=== PATIENT | female | born 1960 | race Caucasian/White ===

== ENCOUNTER 2018-08-09 13:40 | Emergency (ER) | payer BC ==
[~2018-08-09] VITALS: Ht 162.6 cm; Wt 86.2 kg
[2018-08-09 13:44] VITALS: BP 89/56
--- NOTE | 2018-08-09 13:51 | NUR ---
57/F [place] [facility] [place]. PT STATES SHE FELT DIZZINESS, FELL BACK AND HIT HER HEAD, + HEMATOMIA ON THE RIGHT SIDE OF THE HEAD. DENIES LOC OR N/V. BLL PITTING EDEMA . PMH: LIVER CIRRHOSIS,DM, HTN,ETOH ABUSE, ABD HERNIA & SURGERY:SCAR.PATIENT STATES PAIN OF 8/10 AT THIS TIME. PATIENT POSITIONED FOR COMFORT; HOB ELEVATED; BEDRAILS UP X2; BED DOWN. ER MD MADE AWARE OF PT STATUS.
--- NOTE | 2018-08-09 14:03 | NUR ---
Patient being evaluated by DR CHUA at bedside.
--- NOTE | 2018-08-09 14:15 | NUR ---
PT TAKEN TO CT VIA [facility], ACCOMPANIED BY PARADI TENDER.
[2018-08-09] MEDS ORDERED: MORPHINE SULFATE 4 MG/ML SYR IM ONE (14:40)
--- NOTE | 2018-08-09 16:21 | NUR ---
REPORTED GIVEN TO JETT TINEO AT [facility].
[2018-08-09 16:27] VITALS: BP 123/64
--- NOTE | 2018-08-09 16:27 | NUR ---
Patient discharged with v/s stable. Written and verbal after care instructions given and explained. Patient verbalized understanding. Wheel Chair Assisted with to snf. All questions addressed prior to discharge. Advised to follow up with PMD.
== END 2018-08-09 16:27 | disposition home or self-care (01) ==
LOC: MED 13:40
DX: S00.03XA Contusion of scalp, initial encounter (principal); F17.200 Nicotine dependence, unspecified, uncomplicated; W01.198A Fall on same level from slipping, tripping and stumbling with subsequent striking against other object, initial encounter; Y93.89 Activity, other specified; Y92.091 Bathroom in other non-institutional residence as the place of occurrence of the external cause; Y99.8 Other external cause status
CPT/HCPCS: 70450; 72125; 96372; 99284; J2270